=== PATIENT | male | born 1990 | race Caucasian/White ===

== ENCOUNTER 2019-05-28 16:39 | Emergency (ER) | payer MEDICAID ==
[~2019-05-28] VITALS: Ht 175.3 cm; Wt 81.6 kg
[2019-05-28] MEDS ORDERED: KETOROLAC 30 MG/ML VIAL IM ONE (18:05)
--- NOTE | 2019-05-28 18:08 | NUR ---
PT PRESENTS TO ED WITH C/O LT FOOT PAIN AFTER HITTING A CURVE AND SUSTAINING A FALL. DENIES HITTING HEAD OR ALOC. REPORTS 10/10 PAIN AT THIS TIME. HX; DENIES ALLERGY; DENIES
--- NOTE | 2019-05-28 18:24 | NUR ---
PLACED ROSA WRAP ON LEFT FOOT OF PATIENT. SIZED CRUTCHES TO PATIENT
[2019-05-28 18:34] VITALS: BP 122/88
--- NOTE | 2019-05-28 18:35 | NUR ---
Patient discharged with v/s stable. Written and verbal after care instructions given and explained. Patient alert, oriented and verbalized understanding of instructions. Ambulatory with crutches. All questions addressed prior to discharge. ID band removed. Patient advised to follow up with PMD. Rx of Motrin given. Patient educated on indication of medication including possible reaction and side effects. Opportunity to ask questions provided and answered.
== END 2019-05-28 18:35 | disposition home or self-care (01) ==
LOC: MED 16:39
DX: S93.602A Unspecified sprain of left foot, initial encounter (principal); W22.8XXA Striking against or struck by other objects, initial encounter; Y93.89 Activity, other specified; Y92.89 Other specified places as the place of occurrence of the external cause; Y99.8 Other external cause status
CPT/HCPCS: 73630; 96372; 99283; J1885; Q0092